=== PATIENT | male | born 1955 | race African-American/Black ===

== ENCOUNTER 2021-05-26 13:20 | Inpatient (IN) | payer OTHER, MEDICAID ==
[~2021-05-26] VITALS: Ht 180.3 cm; Wt 84.4 kg
[2021-05-26] MEDS ORDERED: IOHEXOL-350 100 ML BOTTLE ONE (14:47)
[2021-05-26 15:04] LABS: BASOPHILS % 0.3 % (0.0-2.0); HEMATOCRIT. 41.2 % (42.0-52.0); HEMOGLOBIN. 13.7 g/dL (14.0-18.0); LYMPHOCYTES % 25.1 % (20.0-50.0); MEAN CORPUSCULAR HEMOGLOBIN 29.8 pg (28.0-32.0); MEAN CORPUSCULAR VOLUME 89.4 fL (80.0-94.0); MEAN PLATELET VOLUME 8.3 fl (7.4-10.4); MONOCYTES % 13.8 % (2.0-8.0); NEUTROPHILS % 59.8 % (40.0-76.0); PLATELET 278 x1000/uL (130-400); RED BLOOD CELL COUNT 4.61 mill/uL (4.7-6.1); RED CELL DISTRIBUTION WIDTH 14.2 % (11.6-14.6)
[2021-05-26 15:07] LABS: PROTHROMBIN TIME 10.7 sec (9.6-11.0)
[2021-05-26 15:08] LABS: CHLORIDE 109 mEq/L (98-107)
[2021-05-26 15:12] LABS: ETHANOL BLOOD < 10 mg/dL
[2021-05-26 15:15] LABS: LDL CHOLESTEROL 88 mg/dL (5-100)
[2021-05-26] MEDS ORDERED: ONDANSETRON HCL 4MG/2ML INJ IV PRN (19:45)
[2021-05-26] MEDS ORDERED: MAGNESIUM/ALUMINUM HYDROXIDE/SIMETHICONE 30ML UDC PO PRN (19:45)
[2021-05-26] MEDS ORDERED: DEXTROSE 50% WATER 50ML SYRINGE IV PRN (19:45)
[2021-05-26] MEDS ORDERED: NITROGLYCERIN 0.4MG TABLET SL SL PRN (19:45)
[2021-05-26] MEDS ORDERED: GUAIFENESIN 200MG/10ML SUGAR FREE UDC PO PRN (19:45)
[2021-05-26] MEDS ORDERED: ACETAMINOPHEN 325MG TABLET PO PRN (19:45)
[2021-05-26] MEDS ORDERED: ZOLPIDEM TARTRATE 5MG TABLET PO PRN (19:45)
[2021-05-26] MEDS ORDERED: IPRATROPIUM/ALBUTEROL 0.5-3(2.5)MG/3ML NEB NEB PRN (19:45)
[2021-05-26] MEDS: ASCORBIC ACID 500 MG TABLET PO SCH (20:20)
[2021-05-26] MEDS: FAMOTIDINE 20MG TABLET PO SCH (20:20)
[2021-05-26] MEDS: ENOXAPARIN 40MG/0.4ML SYR SUBCUT SCH (20:20)
[2021-05-26 20:37] LABS: FOLIC ACID (FOLATE) SERUM 4.4 ng/mL (>5.38)
[2021-05-26 20:41] LABS: CLARITY URINE CLEAR (CLEAR); COLOR URINE YELLOW (YELLOW); KETONES URINE NEGATIVE (NEGATIVE); LEUKOCYTE ESTERASE URINE NEGATIVE (NEGATIVE); NITRITE URINE NEGATIVE (NEGATIVE); OCCULT BLOOD URINE NEGATIVE (NEGATIVE); PH URINE 6.5 (4.5-8.0); PROTEIN URINE 1+ (NEGATIVE); SPECIFIC GRAVITY URINE 1.067 (1.005-1.030); UROBILINOGEN URINE 0.2 E.U./dL (0.2-1.0)
[2021-05-26 20:52] LABS: *AMPHETAMINES SCREEN URINE NEGATIVE (NEGATIVE); *BARBITURATES SCREEN URINE NEGATIVE (NEGATIVE); *BENZODIAZEPINES SCREEN URINE NEGATIVE (NEGATIVE); *COCAINE SCREEN URINE NEGATIVE (NEGATIVE); CANNABINOID URINE SCREEN NEGATIVE (NEGATIVE); METHADONE URINE SCREEN NEGATIVE (NEGATIVE)
[2021-05-26 20:53] LABS: OPIATES URINE SCREEN NEGATIVE (NEGATIVE); PHENCYCLIDINE URINE SCREEN NEGATIVE (NEGATIVE)
[2021-05-26] MEDS: INSULIN LISPRO 100 UNITS/ML SUBCUT SCH (21:00)
[2021-05-26 21:09] LABS: TOTAL IRON BINDING CAPACITY 199 ug/dL (250-450)
[2021-05-26] MEDS: BLOOD SUGAR DIAGNOSTIC STRIP TEST SCH (21:42)
[2021-05-26 22:30] VITALS: BP 144/90
[2021-05-27] VITALS: BP 155/105
[2021-05-27] MEDS ORDERED: *PATIENT'S OWN MEDICATION STORAGE XX SCH (00:30)
[2021-05-27 01:37] LABS: CREATINE KINASE 80 IU/L (39-308)
[2021-05-27 01:38] LABS: CREATINE KINASE MB FRACTION < 1.0 ng/mL (0.5-3.6)
[2021-05-27] MEDS ORDERED: INSU100I28 SQ (01:40)
[2021-05-27] MEDS ORDERED: HYDR12.54 PO (01:40)
[2021-05-27] MEDS ORDERED: PRAV20TA57 PO (01:40)
[2021-05-27] MEDS ORDERED: GLIP-12 PO (01:40)
[2021-05-27] MEDS ORDERED: ASPI-1406 PO (01:40)
[2021-05-27] MEDS ORDERED: CALC-26 PO (01:40)
[2021-05-27] MEDS ORDERED: BENA10TA74 PO (01:40)
[2021-05-27] MEDS ORDERED: ABAC1TAB14 PO (01:40)
[2021-05-27] MEDS ORDERED: TAMS-11 PO (01:40)
[2021-05-27 04:00] VITALS: BP 137/94
[2021-05-27] MEDS: BLOOD SUGAR DIAGNOSTIC STRIP TEST SCH ×4 (06:04→20:12)
[2021-05-27] MEDS: INSULIN LISPRO 100 UNITS/ML SUBCUT SCH ×4 (06:17→20:11)
[2021-05-27 08:00] VITALS: BP 127/87
[2021-05-27] MEDS ORDERED: PNEUMOCOCCAL 23-VAL P-SAC VAC 0.5 ML IM ONE (08:00)
[2021-05-27] MEDS: ASCORBIC ACID 500 MG TABLET PO SCH ×2 (10:20→20:12)
[2021-05-27] MEDS: CLOPIDOGREL 75MG TABLET PO SCH (10:20)
[2021-05-27] MEDS: DEXT 5%/0.9% NACL 1,000 ML IV SCH ×2 (10:20→20:10)
[2021-05-27] MEDS: ZINC SULFATE 220 MG ( 50 ) CAPSULE PO SCH (10:20)
[2021-05-27] MEDS: FAMOTIDINE 20MG TABLET PO SCH ×2 (10:20→20:12)
[2021-05-27] MEDS: CHOLECALCIFEROL (D3) 1000 UNIT TABLET PO SCH (10:21)
[2021-05-27 12:00] VITALS: BP 142/96
[2021-05-27 16:00] VITALS: BP 137/88
[2021-05-27 20:00] VITALS: BP 138/91
[2021-05-27] MEDS: ATORVASTATIN CALCIUM 40MG TABLET PO SCH (20:12)
[2021-05-27] MEDS: ENOXAPARIN 40MG/0.4ML SYR SUBCUT SCH (20:12)
[2021-05-28] VITALS (67 sets, daily range): BP systolic 0–190; BP diastolic 0–99
[2021-05-28] MEDS: BLOOD SUGAR DIAGNOSTIC STRIP TEST SCH ×4 (06:27→21:00)
[2021-05-28] MEDS: INSULIN LISPRO 100 UNITS/ML SUBCUT SCH ×4 (06:27→21:40)
[2021-05-28] MEDS: DEXT 5%/0.9% NACL 1,000 ML IV SCH ×2 (08:40→13:09)
[2021-05-28] MEDS: ZINC SULFATE 220 MG ( 50 ) CAPSULE PO SCH (08:42)
[2021-05-28] MEDS: FAMOTIDINE 20MG TABLET PO SCH ×2 (08:42→21:40)
[2021-05-28] MEDS: CLONIDINE 0.1MG TABLET PO PRN (08:42)
[2021-05-28] MEDS: ASCORBIC ACID 500 MG TABLET PO SCH ×2 (08:42→21:40)
[2021-05-28] MEDS: CHOLECALCIFEROL (D3) 1000 UNIT TABLET PO SCH (08:42)
[2021-05-28] MEDS: CLOPIDOGREL 75MG TABLET PO SCH (08:42)
[2021-05-28] MEDS ORDERED: BACITRACIN 15GM TUBE TOP ONE (09:05)
[2021-05-28] MEDS ORDERED: LIDOCAINE HCL 1% 20ML VIAL (Pyxis) INJ ONE (09:06)
[2021-05-28] MEDS ORDERED: BACITRACIN 50,000 UNITS/VIAL ONE (09:06)
[2021-05-28] MEDS ORDERED: THROMBIN (BOVINE) 5000 UNITS/VIAL TOP ONE (09:06)
[2021-05-28] MEDS ORDERED: BUPIVACAINE HCL/PF 0.5% (5MG/ML) 10ML ONE (09:06)
[2021-05-28] MEDS ORDERED: HEPARIN SODIUM 1,000 UNIT/1ML VIAL IV ONE (09:06)
[2021-05-28] MEDS ORDERED: ACETAMINOPHEN 500MG TABLET ONE (09:53)
[2021-05-28] MEDS ORDERED: PHENYLEPHRINE 50 MG in DEXTROSE 5% WATER 250 ML IV PRN (10:15)
[2021-05-28] MEDS ORDERED: PHENYLEPHRINE HCL 10 MG/ML 1ML (IV VIAL) IV ONE ×2 (10:17→10:36)
[2021-05-28] MEDS ORDERED: PROPOFOL 200MG/20ML VIAL IV ONE (10:20)
[2021-05-28] MEDS ORDERED: FENTANYL CITRATE/PF 50MCG/ML 2ML VIAL ONE (10:22)
[2021-05-28] MEDS ORDERED: NALOXONE HCL 0.4MG/ML VIAL IV PRN (10:30)
[2021-05-28] MEDS ORDERED: HEPARIN 1000 UNITS/ML 10ML ONE (11:11)
[2021-05-28] MEDS ORDERED: PROTAMINE SULFATE 10MG/ML VIAL 5ML IV ONE (11:22)
[2021-05-28] MEDS ORDERED: HYDROMORPHONE HCL/PF 2MG/ML CPJ IV PRN (11:30)
[2021-05-28] MEDS ORDERED: GLYCOPYRROLATE 0.2 MG/ML 2ML VIAL ONE (11:43)
[2021-05-28] MEDS ORDERED: NEOSTIGMINE METHYLSULFATE 1MG/ML 10 ML VIAL ONE (11:45)
[2021-05-28] MEDS ORDERED: LIDOCAINE HCL/PF 1% 10 MG/ML 5ML VIAL ONE ×2 (11:59→12:00)
[2021-05-28] MEDS ORDERED: ONDANSETRON HCL 4MG/2ML INJ ONE (12:00)
[2021-05-28] MEDS: NICARDIPINE 40MG/200ML PREMIX 200 ML IV PRN ×2 (12:02→18:52)
[2021-05-28] MEDS ORDERED: KCL 20MEQ/100ML PREMIX 100 ML IV NR ×2 (12:30→14:30)
[2021-05-28 20:43] LABS: BASOPHILS % 0.2 % (0.0-2.0); HEMATOCRIT. 41.1 % (42.0-52.0); HEMOGLOBIN. 13.6 g/dL (14.0-18.0); LYMPHOCYTES % 9.3 % (20.0-50.0); MEAN CORPUSCULAR HEMOGLOBIN 29.7 pg (28.0-32.0); MEAN CORPUSCULAR VOLUME 89.5 fL (80.0-94.0); MEAN PLATELET VOLUME 7.6 fl (7.4-10.4); MONOCYTES % 7.6 % (2.0-8.0); NEUTROPHILS % 82.9 % (40.0-76.0); PLATELET 327 x1000/uL (130-400); RED BLOOD CELL COUNT 4.59 mill/uL (4.7-6.1); RED CELL DISTRIBUTION WIDTH 14.3 % (11.6-14.6)
[2021-05-28 20:57] LABS: CHLORIDE 107 mEq/L (98-107)
[2021-05-28 21:05] LABS: PROTHROMBIN TIME 10.9 sec (9.6-11.0)
[2021-05-28] MEDS: ATORVASTATIN CALCIUM 40MG TABLET PO SCH (21:40)
[2021-05-28] MEDS ORDERED: NICARDIPINE 50 MG in SODIUM CHLORIDE 0.9% 250 ML IV PRN (22:00)
[2021-05-28] MEDS: MORPHINE SULFATE 4 MG/ML CPJ (NOT FOR IM USE) IV PRN (22:18)
[2021-05-28] MEDS ORDERED: IOHEXOL-350 100 ML BOTTLE ONE (23:21)
[2021-05-29] VITALS (96 sets, daily range): BP systolic 89–214; BP diastolic 49–165
[2021-05-29] MEDS: MORPHINE SULFATE 4 MG/ML CPJ (NOT FOR IM USE) IV PRN (00:13)
[2021-05-29] MEDS: DEXT 5%/0.9% NACL 1,000 ML IV SCH ×3 (01:13→20:32)
[2021-05-29 01:31] LABS: BG BASE EXCESS -1.1 mmol/L (-2.0-2.0); BG CARBOXYHEMOGLOBIN 0.3 % (0.5-1.5); BG DEOXYHEMOGLOBIN 1.4 % (0.0-5.0); BG FRACTION INSPIRED OXYGEN 40; BG HCO3 ACT 23.7 mmol/L (22.0-26.0); BG METHEMOGLOBIN 0.3 % (0.0-1.5); BG OXYGEN SATURATION 98.6 % (92.0-98.5); BG PCO2 40.4 mmHg (35.0-45.0); BG PH 7.387 (7.350-7.450); BG PO2 129.8 mmHg (75.0-100.0); BG SAMPLE SITE ALINE; BG TOTAL HEMOGLOBIN 13.5 g/dL (12.0-18.0); BG VENT MODE MASK - SIMPLE
[2021-05-29] MEDS ORDERED: LORAZEPAM 2MG/ML CPJ IM PRN (02:00)
[2021-05-29] MEDS ORDERED: LORAZEPAM 2MG/ML CPJ IV PRN (02:15)
[2021-05-29] MEDS ORDERED: LORAZEPAM 2MG/ML CPJ IV SCH (03:30)
[2021-05-29] MEDS ORDERED: METHYLPREDNISOLONE SOD SUCC 125 MG/2 ML VIAL IV SCH (03:30)
[2021-05-29 05:15] LABS: BG BASE EXCESS -5.6 mmol/L (-2.0-2.0); BG CARBOXYHEMOGLOBIN 0.3 % (0.5-1.5); BG DEOXYHEMOGLOBIN 0.6 % (0.0-5.0); BG FRACTION INSPIRED OXYGEN 100; BG HCO3 ACT 20.2 mmol/L (22.0-26.0); BG METHEMOGLOBIN 0.4 % (0.0-1.5); BG OXYGEN SATURATION 99.4 % (92.0-98.5); BG OXYHEMOGLOBIN 98.7 % (94.0-97.0); BG PCO2 40.3 mmHg (35.0-45.0); BG PH 7.317 (7.350-7.450); BG PO2 233.2 mmHg (75.0-100.0); BG SAMPLE SITE RIGHT RADIAL; BG TOTAL HEMOGLOBIN 12.8 g/dL (12.0-18.0); BG VENT MODE VENT - AC
[2021-05-29] MEDS: PROPOFOL 10MG/ML 100ML 100 ML IV PRN ×5 (05:46→21:27)
[2021-05-29 06:13] LABS: HEMATOCRIT. 35.1 % (42.0-52.0); HEMOGLOBIN. 11.9 g/dL (14.0-18.0); MEAN CORPUSCULAR HEMOGLOBIN 29.8 pg (28.0-32.0); MEAN CORPUSCULAR VOLUME 88.4 fL (80.0-94.0); MEAN PLATELET VOLUME 8.1 fl (7.4-10.4); PLATELET 326 x1000/uL (130-400); RED BLOOD CELL COUNT 3.98 mill/uL (4.7-6.1)
[2021-05-29 06:27] LABS: CHLORIDE 105 mEq/L (98-107)
[2021-05-29] MEDS: BLOOD SUGAR DIAGNOSTIC STRIP TEST SCH ×4 (07:50→20:32)
[2021-05-29] MEDS ORDERED: SUCCINYLCHOLINE CHLORIDE 200MG/10ML IV ONE (07:56)
[2021-05-29] MEDS ORDERED: ETOMIDATE 2MG/ML 10ML VIAL IV ONE (07:56)
[2021-05-29] MEDS ORDERED: LIDOCAINE HCL 1% 20ML VIAL (Pyxis) INJ ONE (08:21)
[2021-05-29] MEDS: CHOLECALCIFEROL (D3) 1000 UNIT TABLET PO SCH (09:00)
[2021-05-29] MEDS: CLOPIDOGREL 75MG TABLET PO SCH (09:00)
[2021-05-29] MEDS: ZINC SULFATE 220 MG ( 50 ) CAPSULE PO SCH (09:00)
[2021-05-29] MEDS: FAMOTIDINE 20MG TABLET PO SCH ×2 (09:00→20:32)
[2021-05-29] MEDS: ASCORBIC ACID 500 MG TABLET PO SCH ×2 (09:00→20:32)
[2021-05-29] MEDS: INSULIN LISPRO 100 UNITS/ML SUBCUT SCH ×4 (09:36→20:45)
[2021-05-29 11:39] LABS: PLATELET ESTIMATE NORMAL
[2021-05-29 15:43] LABS: BG BASE EXCESS -1.5 mmol/L (-2.0-2.0); BG CARBOXYHEMOGLOBIN 0.1 % (0.5-1.5); BG DEOXYHEMOGLOBIN 0.6 % (0.0-5.0); BG FRACTION INSPIRED OXYGEN 70; BG HCO3 ACT 23.4 mmol/L (22.0-26.0); BG METHEMOGLOBIN 0.3 % (0.0-1.5); BG OXYGEN SATURATION 99.4 % (92.0-98.5); BG PCO2 39.9 mmHg (35.0-45.0); BG PEEP (cmH2O) 0 cmH2O; BG PH 7.386 (7.350-7.450); BG PO2 239.3 mmHg (75.0-100.0); BG SAMPLE SITE RIGHT RADIAL; BG TOTAL HEMOGLOBIN 12.9 g/dL (12.0-18.0); BG VENT MODE VENT - APRV
[2021-05-29] MEDS: ATORVASTATIN CALCIUM 40MG TABLET PO SCH (20:31)
[2021-05-30] VITALS (69 sets, daily range): BP systolic 95–177; BP diastolic 65–102
[2021-05-30] MEDS: PROPOFOL 10MG/ML 100ML 100 ML IV PRN ×4 (00:59→20:13)
[2021-05-30] MEDS: DEXT 5%/0.9% NACL 1,000 ML IV SCH ×2 (06:31→17:47)
[2021-05-30] MEDS: BLOOD SUGAR DIAGNOSTIC STRIP TEST SCH ×3 (07:50→17:47)
[2021-05-30 08:39] LABS: BG BASE EXCESS -3.6 mmol/L (-2.0-2.0); BG CARBOXYHEMOGLOBIN 0.3 % (0.5-1.5); BG DEOXYHEMOGLOBIN 0.9 % (0.0-5.0); BG FRACTION INSPIRED OXYGEN 70; BG HCO3 ACT 21.6 mmol/L (22.0-26.0); BG METHEMOGLOBIN 0.2 % (0.0-1.5); BG OXYGEN SATURATION 99.1 % (92.0-98.5); BG OXYHEMOGLOBIN 98.6 % (94.0-97.0); BG PCO2 39.8 mmHg (35.0-45.0); BG PEEP (cmH2O) 0 cmH2O; BG PH 7.353 (7.350-7.450); BG PO2 273.3 mmHg (75.0-100.0); BG SAMPLE SITE RIGHT RADIAL; BG TOTAL HEMOGLOBIN 12.1 g/dL (12.0-18.0); BG VENT MODE VENT - AC/VC
[2021-05-30 08:53] LABS: CHLORIDE 113 mEq/L (98-107)
[2021-05-30 09:04] LABS: BASOPHILS % 0.1 % (0.0-2.0); HEMATOCRIT. 35.8 % (42.0-52.0); HEMOGLOBIN. 11.7 g/dL (14.0-18.0); MEAN CORPUSCULAR HEMOGLOBIN 29.8 pg (28.0-32.0); MEAN PLATELET VOLUME 8.5 fl (7.4-10.4); MONOCYTES % 9.7 % (2.0-8.0); NEUTROPHILS % 81.2 % (40.0-76.0); PLATELET 313 x1000/uL (130-400); RED BLOOD CELL COUNT 3.93 mill/uL (4.7-6.1); RED CELL DISTRIBUTION WIDTH 14.6 % (11.6-14.6)
[2021-05-30] MEDS: ASCORBIC ACID 500 MG TABLET PO SCH ×2 (09:44→20:56)
[2021-05-30] MEDS: CLOPIDOGREL 75MG TABLET PO SCH (09:44)
[2021-05-30] MEDS: CHOLECALCIFEROL (D3) 1000 UNIT TABLET PO SCH (09:44)
[2021-05-30] MEDS: FAMOTIDINE 20MG TABLET PO SCH ×2 (09:44→20:56)
[2021-05-30] MEDS: ZINC SULFATE 220 MG ( 50 ) CAPSULE PO SCH (09:44)
[2021-05-30] MEDS: INSULIN LISPRO 100 UNITS/ML SUBCUT SCH ×3 (09:55→17:47)
[2021-05-30] MEDS: CLONIDINE 0.1MG TABLET PO PRN ×2 (10:33→22:53)
[2021-05-30 10:54] LABS: BG SAMPLE SITE Right Radial; BG TIDAL VOLUME(mL) 500 mL; BG VENT RATE 18 set
[2021-05-30 10:55] LABS: BG VENT MODE VENT-AC/VC
[2021-05-30 10:56] LABS: BG FRACTION INSPIRED OXYGEN 70; BG PCO2 39.9 mmHg (35.0-45.0); BG PEEP (cmH2O) 0 cmH2O; BG PH 7.386 (7.350-7.450)
[2021-05-30 10:57] LABS: BG BASE EXCESS -1.5 mmol/L (-2.0-2.0); BG HCO3 ACT 23.4 mmol/L (22.0-26.0); BG OXYGEN SATURATION 99.4 % (92.0-98.5); BG PO2 239.3 mmHg (75.0-100.0); BG TOTAL HEMOGLOBIN 12.9 g/dL (12.0-18.0)
[2021-05-30 10:58] LABS: BG CARBOXYHEMOGLOBIN 0.1 % (0.5-1.5); BG DEOXYHEMOGLOBIN 0.6 % (0.0-5.0); BG METHEMOGLOBIN 0.3 % (0.0-1.5)
[2021-05-30] MEDS: ATORVASTATIN CALCIUM 40MG TABLET PO SCH (20:56)
[2021-05-30] MEDS: MIDAZOLAM HCL 100 MG in SODIUM CHLORIDE 0.9% 80 ML IV PRN (21:44)
[2021-05-30] MEDS: FENTANYL CITRATE/PF 2,500 MCG in SODIUM CHLORIDE 0.9% 200 ML IV PRN (21:45)
[2021-05-31] VITALS (97 sets, daily range): BP systolic 94–191; BP diastolic 59–113
[2021-05-31] MEDS: BLOOD SUGAR DIAGNOSTIC STRIP TEST SCH ×4 (00:07→18:33)
[2021-05-31] MEDS: INSULIN LISPRO 100 UNITS/ML SUBCUT SCH ×4 (00:10→18:33)
[2021-05-31 06:31] LABS: BASOPHILS % 0.1 % (0.0-2.0); EOSINOPHILS % 0.1 % (0.0-5.0); HEMATOCRIT. 33.8 % (42.0-52.0); LYMPHOCYTES % 11.5 % (20.0-50.0); MEAN CORPUSCULAR HEMOGLOBIN 29.1 pg (28.0-32.0); MEAN CORPUSCULAR VOLUME 89.1 fL (80.0-94.0); MEAN PLATELET VOLUME 8.2 fl (7.4-10.4); MONOCYTES % 9.6 % (2.0-8.0); NEUTROPHILS % 78.7 % (40.0-76.0); PLATELET 298 x1000/uL (130-400); RED BLOOD CELL COUNT 3.79 mill/uL (4.7-6.1); RED CELL DISTRIBUTION WIDTH 14.3 % (11.6-14.6)
[2021-05-31 06:56] LABS: CHLORIDE 113 mEq/L (98-107)
[2021-05-31 07:09] LABS: LDL CHOLESTEROL 54 mg/dL (5-100)
[2021-05-31 07:17] LABS: HDL CHOLESTEROL 32 mg/dL (40-59)
[2021-05-31 07:56] LABS: BG BASE EXCESS -0.5 mmol/L (-2.0-2.0); BG CARBOXYHEMOGLOBIN 0.3 % (0.5-1.5); BG DEOXYHEMOGLOBIN 1.5 % (0.0-5.0); BG FRACTION INSPIRED OXYGEN 60; BG HCO3 ACT 25.2 mmol/L (22.0-26.0); BG METHEMOGLOBIN 0.3 % (0.0-1.5); BG OXYGEN SATURATION 98.5 % (92.0-98.5); BG OXYHEMOGLOBIN 97.9 % (94.0-97.0); BG PCO2 45.2 mmHg (35.0-45.0); BG PH 7.364 (7.350-7.450); BG PO2 120.1 mmHg (75.0-100.0); BG SAMPLE SITE LEFT BRACHIAL; BG TOTAL HEMOGLOBIN 13.4 g/dL (12.0-18.0); BG VENT MODE VENT - AC
[2021-05-31] MEDS: CLONIDINE 0.1MG TABLET PO PRN ×2 (07:59→18:04)
[2021-05-31] MEDS: ZINC SULFATE 220 MG ( 50 ) CAPSULE PO SCH (08:00)
[2021-05-31] MEDS: CHOLECALCIFEROL (D3) 1000 UNIT TABLET PO SCH (08:00)
[2021-05-31] MEDS: ASCORBIC ACID 500 MG TABLET PO SCH ×2 (08:00→21:27)
[2021-05-31] MEDS: CLOPIDOGREL 75MG TABLET PO SCH (08:00)
[2021-05-31] MEDS: FAMOTIDINE 20MG TABLET PO SCH ×2 (08:00→21:27)
[2021-05-31] MEDS: ACETAMINOPHEN 325MG TABLET PO PRN (11:53)
[2021-05-31] MEDS: MIDAZOLAM HCL 100 MG in SODIUM CHLORIDE 0.9% 80 ML IV PRN (14:43)
[2021-05-31] MEDS ORDERED: PHENYLEPHRINE 100 MG in DEXT 5% WATER 240 ML IV PRN (16:00)
[2021-05-31] MEDS ORDERED: DOPAMINE 400MG/250ML PREMIX 250 ML IV PRN (16:00)
[2021-05-31] MEDS ORDERED: EPINEPHRINE 10 MG in SODIUM CHLORIDE 0.9% 240 ML IV PRN (16:00)
[2021-05-31] MEDS: IPRATROPIUM/ALBUTEROL 0.5-3(2.5)MG/3ML NEB HHN SCH (21:17)
[2021-05-31] MEDS: ATORVASTATIN CALCIUM 40MG TABLET PO SCH (21:27)
[2021-06-01] VITALS (91 sets, daily range): BP systolic 102–177; BP diastolic 58–112
[2021-06-01] MEDS: FENTANYL CITRATE/PF 2,500 MCG in SODIUM CHLORIDE 0.9% 200 ML IV PRN (00:03)
[2021-06-01] MEDS: BLOOD SUGAR DIAGNOSTIC STRIP TEST SCH ×4 (00:09→18:18)
[2021-06-01] MEDS: INSULIN LISPRO 100 UNITS/ML SUBCUT SCH ×4 (00:11→18:48)
[2021-06-01] MEDS: IPRATROPIUM/ALBUTEROL 0.5-3(2.5)MG/3ML NEB HHN SCH ×4 (01:07→21:40)
[2021-06-01 05:57] LABS: BASOPHILS % 0.2 % (0.0-2.0); EOSINOPHILS % 0.3 % (0.0-5.0); HEMATOCRIT. 34.3 % (42.0-52.0); HEMOGLOBIN. 11.4 g/dL (14.0-18.0); LYMPHOCYTES % 18.6 % (20.0-50.0); MEAN CORPUSCULAR HEMOGLOBIN 29.6 pg (28.0-32.0); MEAN CORPUSCULAR VOLUME 89.2 fL (80.0-94.0); MONOCYTES % 10.6 % (2.0-8.0); NEUTROPHILS % 70.3 % (40.0-76.0); PLATELET 316 x1000/uL (130-400); RED BLOOD CELL COUNT 3.85 mill/uL (4.7-6.1); RED CELL DISTRIBUTION WIDTH 14.5 % (11.6-14.6)
[2021-06-01 06:06] LABS: CHLORIDE 110 mEq/L (98-107)
[2021-06-01 08:27] LABS: BG BASE EXCESS 0.2 mmol/L (-2.0-2.0); BG CARBOXYHEMOGLOBIN 0.2 % (0.5-1.5); BG DEOXYHEMOGLOBIN 1.5 % (0.0-5.0); BG FRACTION INSPIRED OXYGEN 40; BG HCO3 ACT 25.2 mmol/L (22.0-26.0); BG METHEMOGLOBIN 0.2 % (0.0-1.5); BG OXYGEN SATURATION 98.5 % (92.0-98.5); BG OXYHEMOGLOBIN 98.1 % (94.0-97.0); BG PCO2 42.4 mmHg (35.0-45.0); BG PH 7.392 (7.350-7.450); BG PO2 110.7 mmHg (75.0-100.0); BG SAMPLE SITE RIGHT BRACHIAL; BG TOTAL HEMOGLOBIN 11.8 g/dL (12.0-18.0); BG TOTAL RESPIRATORY RATE 19 b/min; BG VENT MODE VENT - AC
[2021-06-01] MEDS: ZINC SULFATE 220 MG ( 50 ) CAPSULE PO SCH (09:32)
[2021-06-01] MEDS: FAMOTIDINE 20MG TABLET PO SCH ×2 (09:32→22:09)
[2021-06-01] MEDS: CLOPIDOGREL 75MG TABLET PO SCH (09:32)
[2021-06-01] MEDS: CHOLECALCIFEROL (D3) 1000 UNIT TABLET PO SCH (09:32)
[2021-06-01] MEDS: ASCORBIC ACID 500 MG TABLET PO SCH ×2 (09:32→22:08)
[2021-06-01] MEDS: MIDAZOLAM HCL 100 MG in SODIUM CHLORIDE 0.9% 80 ML IV PRN (12:34)
[2021-06-01] MEDS: ATORVASTATIN CALCIUM 40MG TABLET PO SCH (22:08)
[2021-06-02] VITALS (70 sets, daily range): BP systolic 100–176; BP diastolic 59–99
[2021-06-02] MEDS: BLOOD SUGAR DIAGNOSTIC STRIP TEST SCH ×4 (00:25→17:39)
[2021-06-02] MEDS: INSULIN LISPRO 100 UNITS/ML SUBCUT SCH ×4 (00:54→17:33)
[2021-06-02] MEDS: IPRATROPIUM/ALBUTEROL 0.5-3(2.5)MG/3ML NEB HHN SCH ×4 (01:45→20:12)
[2021-06-02 05:57] LABS: BASOPHILS % 0.2 % (0.0-2.0); EOSINOPHILS % 0.7 % (0.0-5.0); HEMATOCRIT. 32.9 % (42.0-52.0); HEMOGLOBIN. 11.2 g/dL (14.0-18.0); LYMPHOCYTES % 13.2 % (20.0-50.0); MEAN CORPUSCULAR HEMOGLOBIN 30.2 pg (28.0-32.0); MEAN CORPUSCULAR VOLUME 88.6 fL (80.0-94.0); MEAN PLATELET VOLUME 7.7 fl (7.4-10.4); MONOCYTES % 13.1 % (2.0-8.0); NEUTROPHILS % 72.8 % (40.0-76.0); PLATELET 340 x1000/uL (130-400); RED BLOOD CELL COUNT 3.72 mill/uL (4.7-6.1); RED CELL DISTRIBUTION WIDTH 14.3 % (11.6-14.6)
[2021-06-02 06:00] LABS: CHLORIDE 109 mEq/L (98-107)
[2021-06-02] MEDS: CHOLECALCIFEROL (D3) 1000 UNIT TABLET PO SCH (09:31)
[2021-06-02] MEDS: ASCORBIC ACID 500 MG TABLET PO SCH ×2 (09:31→21:58)
[2021-06-02] MEDS: ZINC SULFATE 220 MG ( 50 ) CAPSULE PO SCH (09:31)
[2021-06-02] MEDS: FAMOTIDINE 20MG TABLET PO SCH ×2 (09:31→21:58)
[2021-06-02] MEDS: CLOPIDOGREL 75MG TABLET PO SCH (09:31)
[2021-06-02 09:50] LABS: BG BASE EXCESS 1.9 mmol/L (-2.0-2.0); BG CARBOXYHEMOGLOBIN 0.5 % (0.5-1.5); BG DEOXYHEMOGLOBIN 2.3 % (0.0-5.0); BG FRACTION INSPIRED OXYGEN 40; BG HCO3 ACT 27.8 mmol/L (22.0-26.0); BG METHEMOGLOBIN 0.3 % (0.0-1.5); BG OXYGEN SATURATION 97.7 % (92.0-98.5); BG OXYHEMOGLOBIN 96.9 % (94.0-97.0); BG PCO2 48.5 mmHg (35.0-45.0); BG PH 7.376 (7.350-7.450); BG PO2 97.9 mmHg (75.0-100.0); BG SAMPLE SITE RIGHT RADIAL; BG TOTAL HEMOGLOBIN 13.6 g/dL (12.0-18.0); BG VENT MODE MASK - BIPAP
[2021-06-02] MEDS: CEFEPIME 1,000 MG in DEXTROSE 5% WATER 50 ML IV SCH ×2 (10:15→21:58)
[2021-06-02] MEDS: FENTANYL CITRATE/PF 2,500 MCG in SODIUM CHLORIDE 0.9% 200 ML IV PRN (10:17)
[2021-06-02] MEDS: MIDAZOLAM HCL 100 MG in SODIUM CHLORIDE 0.9% 80 ML IV PRN (16:12)
[2021-06-02] MEDS: ATORVASTATIN CALCIUM 40MG TABLET PO SCH (21:58)
[2021-06-03] VITALS (56 sets, daily range): BP systolic 101–187; BP diastolic 63–116
[2021-06-03] MEDS: INSULIN LISPRO 100 UNITS/ML SUBCUT SCH ×5 (00:17→23:43)
[2021-06-03] MEDS: BLOOD SUGAR DIAGNOSTIC STRIP TEST SCH ×4 (00:54→18:33)
[2021-06-03] MEDS: IPRATROPIUM/ALBUTEROL 0.5-3(2.5)MG/3ML NEB HHN SCH ×5 (02:10→20:28)
[2021-06-03] MEDS: MIDAZOLAM HCL 100 MG in SODIUM CHLORIDE 0.9% 80 ML IV PRN (05:06)
[2021-06-03 06:43] LABS: HEMATOCRIT. 31.8 % (42.0-52.0); HEMOGLOBIN. 10.7 g/dL (14.0-18.0); MEAN CORPUSCULAR HEMOGLOBIN 30.1 pg (28.0-32.0); MEAN PLATELET VOLUME 7.8 fl (7.4-10.4); PLATELET 347 x1000/uL (130-400); RED BLOOD CELL COUNT 3.57 mill/uL (4.7-6.1); RED CELL DISTRIBUTION WIDTH 14.6 % (11.6-14.6)
[2021-06-03 06:50] LABS: CHLORIDE 108 mEq/L (98-107)
[2021-06-03] MEDS ORDERED: RACEPINEPHRINE 2.25% 0.5ML NEB VIAL HHN NR (08:30)
[2021-06-03 08:46] LABS: BG CARBOXYHEMOGLOBIN 0.4 % (0.5-1.5); BG DEOXYHEMOGLOBIN 1.4 % (0.0-5.0); BG FRACTION INSPIRED OXYGEN 40; BG HCO3 ACT 27.1 mmol/L (22.0-26.0); BG METHEMOGLOBIN 0.2 % (0.0-1.5); BG OXYGEN SATURATION 98.6 % (92.0-98.5); BG PEEP (cmH2O) 0 cmH2O; BG PH 7.407 (7.350-7.450); BG PO2 122.8 mmHg (75.0-100.0); BG SAMPLE SITE RIGHT RADIAL; BG TOTAL HEMOGLOBIN 11.6 g/dL (12.0-18.0); BG VENT MODE VENT - AC
[2021-06-03 08:46] LABS: PLATELET ESTIMATE NORMAL
[2021-06-03] MEDS: FAMOTIDINE 20MG TABLET PO SCH ×2 (09:29→21:31)
[2021-06-03] MEDS: CHOLECALCIFEROL (D3) 1000 UNIT TABLET PO SCH (09:29)
[2021-06-03] MEDS: ZINC SULFATE 220 MG ( 50 ) CAPSULE PO SCH (09:29)
[2021-06-03] MEDS: CLOPIDOGREL 75MG TABLET PO SCH (09:30)
[2021-06-03] MEDS: ASCORBIC ACID 500 MG TABLET PO SCH ×2 (09:30→21:31)
[2021-06-03] MEDS: CEFEPIME 1,000 MG in DEXTROSE 5% WATER 50 ML IV SCH (09:31)
[2021-06-03 10:09] LABS: BG BASE EXCESS 4.2 mmol/L (-2.0-2.0); BG CARBOXYHEMOGLOBIN 0.5 % (0.5-1.5); BG FRACTION INSPIRED OXYGEN 40; BG HCO3 ACT 29.8 mmol/L (22.0-26.0); BG METHEMOGLOBIN 0.2 % (0.0-1.5); BG OXYHEMOGLOBIN 97.3 % (94.0-97.0); BG PCO2 48.9 mmHg (35.0-45.0); BG PEEP (cmH2O) 0 cmH2O; BG PH 7.403 (7.350-7.450); BG PO2 106.4 mmHg (75.0-100.0); BG SAMPLE SITE RIGHT RADIAL; BG TOTAL HEMOGLOBIN 12.1 g/dL (12.0-18.0); BG VENT MODE VENT - CPAP
[2021-06-03] MEDS ORDERED: HYDRALAZINE 20MG/ML VIAL IV PRN (16:45)
[2021-06-03] MEDS: DOCUSATE SODIUM 100MG CAPSULE PO PRN (17:28)
[2021-06-03] MEDS: LEVOFLOXACIN 750MG PREMIX 150 ML IV SCH (19:07)
[2021-06-03] MEDS: ATORVASTATIN CALCIUM 40MG TABLET PO SCH (21:30)
[2021-06-03] MEDS: PRAVASTATIN 20 MG PO SCH (21:32)
[2021-06-03] MEDS: CLONIDINE 0.1MG TABLET PO PRN (22:03)
[2021-06-04] VITALS (39 sets, daily range): BP systolic 48–171; BP diastolic 40–108
[2021-06-04] MEDS: IPRATROPIUM/ALBUTEROL 0.5-3(2.5)MG/3ML NEB HHN SCH ×4 (02:21→20:55)
[2021-06-04] MEDS: BLOOD SUGAR DIAGNOSTIC STRIP TEST SCH ×5 (05:29→18:12)
[2021-06-04] MEDS: INSULIN LISPRO 100 UNITS/ML SUBCUT SCH ×3 (06:00→18:00)
[2021-06-04] MEDS: ZINC SULFATE 220 MG ( 50 ) CAPSULE PO SCH (08:25)
[2021-06-04] MEDS: ASPIRIN 81MG EC TABLET PO SCH (08:25)
[2021-06-04] MEDS: CHOLECALCIFEROL (D3) 1000 UNIT TABLET PO SCH (08:25)
[2021-06-04] MEDS: TAMSULOSIN HCL 0.4MG SR CAPSULE PO SCH (08:25)
[2021-06-04] MEDS: FAMOTIDINE 20MG TABLET PO SCH ×2 (08:25→22:04)
[2021-06-04] MEDS: CLOPIDOGREL 75MG TABLET PO SCH (08:26)
[2021-06-04] MEDS: BENAZEPRIL 10MG TABLET PO SCH (08:26)
[2021-06-04] MEDS: GLIPIZIDE XL 2.5MG TABLET PO SCH (08:26)
[2021-06-04] MEDS: ASCORBIC ACID 500 MG TABLET PO SCH ×2 (08:26→21:54)
[2021-06-04] MEDS ORDERED: HYDROCHLOROTHIAZIDE 25MG TABLET PO SCH (09:00)
[2021-06-04] MEDS ORDERED: MEDICATION NOT ON FORMULARY EA (Hydrochlorothiazide 12.5 MG) PO SCH (09:00)
[2021-06-04] MEDS: LEVOFLOXACIN 750MG PREMIX 150 ML IV SCH (10:58)
[2021-06-04] MEDS: PRAVASTATIN 20 MG PO SCH (21:00)
[2021-06-04] MEDS: ATORVASTATIN CALCIUM 40MG TABLET PO SCH (21:55)
[2021-06-05] VITALS (10 sets, daily range): BP systolic 107–133; BP diastolic 65–91
[2021-06-05] MEDS: INSULIN LISPRO 100 UNITS/ML SUBCUT SCH ×3 (01:08→13:38)
[2021-06-05] MEDS: BLOOD SUGAR DIAGNOSTIC STRIP TEST SCH ×4 (06:51→18:16)
[2021-06-05] MEDS: ACETAMINOPHEN 325MG TABLET PO PRN (06:53)
[2021-06-05] MEDS: IPRATROPIUM/ALBUTEROL 0.5-3(2.5)MG/3ML NEB HHN SCH ×2 (09:10→14:20)
[2021-06-05] MEDS: TAMSULOSIN HCL 0.4MG SR CAPSULE PO SCH (09:41)
[2021-06-05] MEDS: DOCUSATE SODIUM 100MG CAPSULE PO PRN (09:41)
[2021-06-05] MEDS: ZINC SULFATE 220 MG ( 50 ) CAPSULE PO SCH (09:43)
[2021-06-05] MEDS: CHOLECALCIFEROL (D3) 1000 UNIT TABLET PO SCH (09:43)
[2021-06-05] MEDS: ASPIRIN 81MG EC TABLET PO SCH (09:43)
[2021-06-05] MEDS: ASCORBIC ACID 500 MG TABLET PO SCH ×2 (09:43→22:10)
[2021-06-05] MEDS: GLIPIZIDE XL 2.5MG TABLET PO SCH (09:43)
[2021-06-05] MEDS: HYDROCHLOROTHIAZIDE 12.5MG CAPSULE PO SCH (09:44)
[2021-06-05] MEDS: BENAZEPRIL 10MG TABLET PO SCH (09:44)
[2021-06-05] MEDS: CLOPIDOGREL 75MG TABLET PO SCH (09:44)
[2021-06-05] MEDS: FAMOTIDINE 20MG TABLET PO SCH ×2 (09:45→22:10)
[2021-06-05] MEDS: LEVOFLOXACIN 750MG PREMIX 150 ML IV SCH (13:35)
[2021-06-05] MEDS: PRAVASTATIN 20 MG PO SCH (21:00)
[2021-06-05] MEDS: ATORVASTATIN CALCIUM 40MG TABLET PO SCH (22:10)
[2021-06-06] VITALS (8 sets, daily range): BP systolic 99–124; BP diastolic 57–89
[2021-06-06] MEDS: INSULIN LISPRO 100 UNITS/ML SUBCUT SCH ×4 (05:31→17:31)
[2021-06-06] MEDS: BLOOD SUGAR DIAGNOSTIC STRIP TEST SCH ×3 (05:40→17:31)
[2021-06-06] MEDS: IPRATROPIUM/ALBUTEROL 0.5-3(2.5)MG/3ML NEB HHN SCH ×3 (09:09→21:16)
[2021-06-06] MEDS: HYDROCHLOROTHIAZIDE 12.5MG CAPSULE PO SCH (09:43)
[2021-06-06] MEDS: TAMSULOSIN HCL 0.4MG SR CAPSULE PO SCH (09:43)
[2021-06-06] MEDS: CHOLECALCIFEROL (D3) 1000 UNIT TABLET PO SCH (09:43)
[2021-06-06] MEDS: FAMOTIDINE 20MG TABLET PO SCH ×2 (09:43→21:10)
[2021-06-06] MEDS: ZINC SULFATE 220 MG ( 50 ) CAPSULE PO SCH (09:43)
[2021-06-06] MEDS: GLIPIZIDE XL 2.5MG TABLET PO SCH (09:43)
[2021-06-06] MEDS: CLOPIDOGREL 75MG TABLET PO SCH (09:43)
[2021-06-06] MEDS: ASCORBIC ACID 500 MG TABLET PO SCH ×2 (09:43→21:10)
[2021-06-06] MEDS: BENAZEPRIL 10MG TABLET PO SCH (09:43)
[2021-06-06] MEDS: ASPIRIN 81MG EC TABLET PO SCH (09:45)
[2021-06-06] MEDS: FOLIC ACID 1MG TABLET PO SCH (13:07)
[2021-06-06] MEDS: CYANOCOBALAMIN 1000MCG/ML VIAL IM SCH (13:07)
[2021-06-06] MEDS: LEVOFLOXACIN 750MG PREMIX 150 ML IV SCH (13:08)
[2021-06-06] MEDS: PRAVASTATIN 20 MG PO SCH (21:00)
[2021-06-06] MEDS ORDERED: IPRATROPIUM/ALBUTEROL 0.5-3(2.5)MG/3ML NEB ONE (21:14)
[2021-06-07] VITALS (7 sets, daily range): BP systolic 109–124; BP diastolic 60–83
[2021-06-07] MEDS: IPRATROPIUM/ALBUTEROL 0.5-3(2.5)MG/3ML NEB HHN SCH ×4 (03:00→20:52)
[2021-06-07] MEDS: INSULIN LISPRO 100 UNITS/ML SUBCUT SCH ×4 (06:00→18:00)
[2021-06-07] MEDS: BLOOD SUGAR DIAGNOSTIC STRIP TEST SCH ×4 (06:19→18:34)
[2021-06-07 06:30] LABS: T4 FREE 1.25 ng/dL (0.76-1.46)
[2021-06-07 07:20] LABS: VITAMIN B12 SERUM > 2000.0 pg/mL (211-911)
[2021-06-07] MEDS: CYANOCOBALAMIN 1000MCG/ML VIAL IM SCH (09:00)
[2021-06-07] MEDS: ZINC SULFATE 220 MG ( 50 ) CAPSULE PO SCH (09:28)
[2021-06-07] MEDS: GLIPIZIDE XL 2.5MG TABLET PO SCH (09:28)
[2021-06-07] MEDS: CHOLECALCIFEROL (D3) 1000 UNIT TABLET PO SCH (09:29)
[2021-06-07] MEDS: FOLIC ACID 1MG TABLET PO SCH (09:29)
[2021-06-07] MEDS: TAMSULOSIN HCL 0.4MG SR CAPSULE PO SCH (09:29)
[2021-06-07] MEDS: ASPIRIN 81MG EC TABLET PO SCH (09:30)
[2021-06-07] MEDS: ASCORBIC ACID 500 MG TABLET PO SCH ×2 (09:30→20:19)
[2021-06-07] MEDS: CLOPIDOGREL 75MG TABLET PO SCH (09:30)
[2021-06-07] MEDS: HYDROCHLOROTHIAZIDE 12.5MG CAPSULE PO SCH (09:51)
[2021-06-07] MEDS: FAMOTIDINE 20MG TABLET PO SCH ×2 (09:51→20:19)
[2021-06-07] MEDS: BENAZEPRIL 10MG TABLET PO SCH (09:51)
[2021-06-07] MEDS: LEVOFLOXACIN 750MG PREMIX 150 ML IV SCH (12:01)
[2021-06-07] MEDS ORDERED: SODIUM CHLORIDE 0.9% 500 ML IV NR (16:45)
[2021-06-07] MEDS: PRAVASTATIN 20 MG PO SCH (21:00)
[2021-06-07] MEDS: DILTIAZEM HCL 30MG TABLET PO SCH (21:46)
[2021-06-08] VITALS (7 sets, daily range): BP systolic 90–147; BP diastolic 2–125
[2021-06-08] MEDS: BLOOD SUGAR DIAGNOSTIC STRIP TEST SCH ×4 (00:52→18:11)
[2021-06-08] MEDS: IPRATROPIUM/ALBUTEROL 0.5-3(2.5)MG/3ML NEB HHN SCH ×4 (02:28→20:43)
[2021-06-08] MEDS: INSULIN LISPRO 100 UNITS/ML SUBCUT SCH ×4 (05:40→18:00)
[2021-06-08] MEDS: DILTIAZEM HCL 30MG TABLET PO SCH ×3 (05:41→22:00)
[2021-06-08] MEDS: CYANOCOBALAMIN 1000MCG/ML VIAL IM SCH (09:53)
[2021-06-08] MEDS: GLIPIZIDE XL 2.5MG TABLET PO SCH (09:53)
[2021-06-08] MEDS: CHOLECALCIFEROL (D3) 1000 UNIT TABLET PO SCH (09:53)
[2021-06-08] MEDS: FOLIC ACID 1MG TABLET PO SCH (09:54)
[2021-06-08] MEDS: ASPIRIN 81MG EC TABLET PO SCH (09:54)
[2021-06-08] MEDS: ASCORBIC ACID 500 MG TABLET PO SCH ×2 (09:54→21:25)
[2021-06-08] MEDS: ZINC SULFATE 220 MG ( 50 ) CAPSULE PO SCH (09:54)
[2021-06-08] MEDS: TAMSULOSIN HCL 0.4MG SR CAPSULE PO SCH (09:54)
[2021-06-08] MEDS: FAMOTIDINE 20MG TABLET PO SCH ×2 (09:54→21:25)
[2021-06-08] MEDS: CLOPIDOGREL 75MG TABLET PO SCH (09:54)
[2021-06-08] MEDS: LEVOFLOXACIN 750MG PREMIX 150 ML IV SCH (11:39)
[2021-06-08 15:17] LABS: CHLORIDE 103 mEq/L (98-107)
[2021-06-08] MEDS: PRAVASTATIN 20 MG PO SCH (21:00)
[2021-06-09] VITALS (7 sets, daily range): BP systolic 97–116; BP diastolic 62–81
[2021-06-09] MEDS: IPRATROPIUM/ALBUTEROL 0.5-3(2.5)MG/3ML NEB HHN SCH ×4 (02:20→20:18)
[2021-06-09] MEDS: BLOOD SUGAR DIAGNOSTIC STRIP TEST SCH ×5 (06:03→23:09)
[2021-06-09] MEDS: DILTIAZEM HCL 30MG TABLET PO SCH ×3 (06:04→22:00)
[2021-06-09] MEDS: INSULIN LISPRO 100 UNITS/ML SUBCUT SCH ×5 (06:05→23:09)
[2021-06-09] MEDS: CYANOCOBALAMIN 1000MCG/ML VIAL IM SCH (10:06)
[2021-06-09] MEDS: ASCORBIC ACID 500 MG TABLET PO SCH ×2 (10:07→20:28)
[2021-06-09] MEDS: TAMSULOSIN HCL 0.4MG SR CAPSULE PO SCH (10:07)
[2021-06-09] MEDS: ZINC SULFATE 220 MG ( 50 ) CAPSULE PO SCH (10:07)
[2021-06-09] MEDS: CHOLECALCIFEROL (D3) 1000 UNIT TABLET PO SCH (10:07)
[2021-06-09] MEDS: FOLIC ACID 1MG TABLET PO SCH (10:08)
[2021-06-09] MEDS: ASPIRIN 81MG EC TABLET PO SCH (10:08)
[2021-06-09] MEDS: FAMOTIDINE 20MG TABLET PO SCH ×2 (10:08→20:28)
[2021-06-09] MEDS: CLOPIDOGREL 75MG TABLET PO SCH (10:08)
[2021-06-09] MEDS: GLIPIZIDE XL 2.5MG TABLET PO SCH (10:08)
[2021-06-09] MEDS: PRAVASTATIN 20 MG PO SCH (20:28)
[2021-06-10] VITALS (9 sets, daily range): BP systolic 92–126; BP diastolic 37–80
[2021-06-10] MEDS: IPRATROPIUM/ALBUTEROL 0.5-3(2.5)MG/3ML NEB HHN SCH ×4 (02:14→20:24)
[2021-06-10] MEDS: BLOOD SUGAR DIAGNOSTIC STRIP TEST SCH ×3 (05:53→18:00)
[2021-06-10] MEDS: INSULIN LISPRO 100 UNITS/ML SUBCUT SCH ×3 (05:53→18:00)
[2021-06-10] MEDS: DILTIAZEM HCL 30MG TABLET PO SCH ×3 (05:54→22:00)
[2021-06-10] MEDS: CHOLECALCIFEROL (D3) 1000 UNIT TABLET PO SCH (08:59)
[2021-06-10] MEDS: GLIPIZIDE XL 2.5MG TABLET PO SCH (08:59)
[2021-06-10] MEDS: CLOPIDOGREL 75MG TABLET PO SCH (08:59)
[2021-06-10] MEDS: FOLIC ACID 1MG TABLET PO SCH (08:59)
[2021-06-10] MEDS: TAMSULOSIN HCL 0.4MG SR CAPSULE PO SCH (09:00)
[2021-06-10] MEDS: ZINC SULFATE 220 MG ( 50 ) CAPSULE PO SCH (09:00)
[2021-06-10] MEDS: ASCORBIC ACID 500 MG TABLET PO SCH ×2 (09:00→19:57)
[2021-06-10] MEDS: ASPIRIN 81MG EC TABLET PO SCH (09:00)
[2021-06-10] MEDS: CYANOCOBALAMIN 1000MCG/ML VIAL IM SCH (09:01)
[2021-06-10] MEDS: FAMOTIDINE 20MG TABLET PO SCH ×2 (09:01→19:57)
[2021-06-10] MEDS: PRAVASTATIN 20 MG PO SCH (19:57)
[2021-06-19] MEDS ORDERED: CYANOCOBALAMIN 1000MCG/ML VIAL IM SCH (09:00)
== END 2021-06-11 00:15 | DRG 37 ==
LOC: ER 13:20 → 7EST 17:19 → EDBEDREQSVC 17:37 → EDBEDREQTM 17:37 → EDBEDREQ 17:37 → SUPCPDRO 19:32 → ENRESERV 21:25 → ER 22:23 → CVICU 05-28 12:49 → 5EST 06-04 13:41
PROVIDERS: ADMIT Internal Medicine; ATTEND Internal Medicine
PROC: 03CL0ZZ Extirpation of Matter from Left Internal Carotid Artery, Open Approach (ICD-10-PCS; principal; 2021-05-28)
PROC: 02H633Z Insertion of Infusion Device into Right Atrium, Percutaneous Approach (ICD-10-PCS; 2021-05-29)
PROC: B548ZZA Ultrasonography of Superior Vena Cava, Guidance (ICD-10-PCS; 2021-05-29)
PROC: 5A1955Z Respiratory Ventilation, Greater than 96 Consecutive Hours (ICD-10-PCS; 2021-05-29)
PROC: 0BH17EZ Insertion of Endotracheal Airway into Trachea, Via Natural or Artificial Opening (ICD-10-PCS; 2021-05-29)
DX: I63.232 Cerebral infarction due to unspecified occlusion or stenosis of left carotid arteries (principal); J96.01 Acute respiratory failure with hypoxia; N17.0 Acute kidney failure with tubular necrosis; E44.0 Moderate protein-calorie malnutrition; G81.91 Hemiplegia, unspecified affecting right dominant side; R47.01 Aphasia; E11.9 Type 2 diabetes mellitus without complications; E53.8 Deficiency of other specified B group vitamins; E78.00 Pure hypercholesterolemia, unspecified; I10 Essential (primary) hypertension; N40.0 Benign prostatic hyperplasia without lower urinary tract symptoms; Z20.822 Contact with and (suspected) exposure to COVID-19; R26.9 Unspecified abnormalities of gait and mobility; D64.9 Anemia, unspecified; R13.10 Dysphagia, unspecified; J98.8 Other specified respiratory disorders; R47.1 Dysarthria and anarthria; R00.0 Tachycardia, unspecified; E83.51 Hypocalcemia; Z82.49 Family history of ischemic heart disease and other diseases of the circulatory system; Z79.4 Long term (current) use of insulin; Z68.25 Body mass index [BMI] 25.0-25.9, adult; Z86.73 Personal history of transient ischemic attack (TIA), and cerebral infarction without residual deficits
CPT/HCPCS: 36415; 36600; 70496; 70498; 70551; 71045; 76937; 80048; 80053; 80061; 80305; 80320; 81003; 82040; 82375; 82550; 82553; 82607; 82728; 82746; 82805; 82962; 83036; 83540; 83550; 83721; 83735; 84132; 84134; 84145; 84439; 84443; 84481; 84484; 85025; 85384; 86850; 86900; 87070; 87077; 87186; 87426; 88304; 88311; 92523; 92610; 93005; 93306; 93880; 93970; 94003; 94640; 97116; 97162; 97166; 97530; 99291; A6261; C1725; J0330; J0360; J0692; J1170; J1644; J1650; J1815; J1956; J2060; J2250; J2270; J2370; J2405; J2704; J2710; J2720; J2930; J3010; J3420; J3480; J3490; J7030; J7040; J7042; J7050; J7060; Q9967; A4315; G0480